=== PATIENT | female | born 1930 | race Caucasian/White ===

== ENCOUNTER 2020-01-12 12:07 | Emergency (ER) | payer MEDICARE, OTHER ==
[~2020-01-12] VITALS: Ht 162.6 cm; Wt 60.2 kg
[2020-01-12 13:44] LABS: BASOPHILS % (AUTO) 0.4 % (0-1); EOSINOPHILS % (AUTO) 0.1 % (0-6); HEMATOCRIT 36.9 % (35.0-45.0); HEMOGLOBIN 12.3 g/dl (12.0-16.0); LYMPHOCYTES # (AUTO) 0.5 X10'3 (1.1-4.8); LYMPHOCYTES % (AUTO) 7.7 % (21-51); MEAN CORPUSCULAR HEMOGLOBIN 31.6 PG (27.0-31.0); MEAN CORPUSCULAR HGB CONC 33.5 g/dL (33.0-36.5); MEAN CORPUSCULAR VOLUME 94.3 FL (78-98); MEAN PLATELET VOLUME 8.6 FL (7.4-10.4); MONOCYTES % (AUTO) 14.2 % (2-12); NEUTROPHILS # (AUTO) 5.4 X10'3 (1.8-7.7); NEUTROPHILS % (AUTO) 77.6 % (42-75); PLATELET COUNT 135 X10'3 (140-440); RED BLOOD COUNT 3.91 X10'6 (4.20-5.60); RED CELL DISTRIBUTION WIDTH 14.8 % (11.5-14.5)
[2020-01-12 13:53] LABS: ALANINE AMINOTRANSFERASE 21 U/L (12-78); ALBUMIN 3.9 G/DL (3.4-5.0); ALKALINE PHOSPHATASE 110 IU/L (46-116); ANION GAP 8 (8-16); ASPARTATE AMINO TRANSFERASE 19 U/L (10-37); BILIRUBIN,TOTAL 1.1 MG/DL (0.1-1.0); BLOOD UREA NITROGEN 22 MG/DL (7-18); BUN/CREATININE RATIO 29.3 (6.6-38.0); CALCIUM 10.9 MG/DL (8.5-10.1); CHLORIDE 99 MMOL/L (99-107); CREATININE 0.75 MG/DL (0.40-0.90); GLUCOSE 113 MG/DL (70-104); POTASSIUM 3.8 MMOL/L (3.5-5.1); SODIUM 135 MMOL/L (135-145); TOTAL CARBON DIOXIDE 28.3 MMOL/L (24-32); TOTAL PROTEIN 7.9 G/DL (6.4-8.2); eGFR 73 ML/MIN
[2020-01-12 13:54] LABS: CLARITY,URINE CLEAR (Clear); COLOR,URINE YELLOW (Yellow); GLUCOSE, URINE NEGATIVE (Neg); KETONES,URINE TRACE mg/dl (Neg); LEUKOCYTE ESTERASE ,URINE NEGATIVE (Neg); NITRITES, URINE NEGATIVE (Neg); OCCULT BLOOD,URINE SMALL (Neg); PROTEIN,URINE TRACE mg/dl (Neg)
[2020-01-12 14:02] LABS: UA COLLECTION TYPE STRAIGHT CATH
[2020-01-12 14:03] LABS: BACTERIA,URINE NONE SEEN /HPF (Neg); MUCUS STRANDS NONE SEEN /LPF (Neg); SQUAMOUS EPITHELIAL CELL,UR NONE SEEN /LPF (FEW); WBC,URINE NONE SEEN /HPF (0-4)
[2020-01-12] MEDS ORDERED: morphine 4 MG/ML inj SYRINge IV ONE (14:50)
[2020-01-12] MEDS ORDERED: ondansetron/PF 4mg/2ml inj IV ONE (14:50)
--- NOTE | 2020-01-12 14:53 | NUR ---
notified paint specialist dodson that pt bp is 199/126 .pt is in pain at this time due to discomfort on her face while x ray taking x rays of rgt leg.
--- NOTE | 2020-01-12 15:47 | NUR ---
Karen Braxton, [employer] DRAWER aware of pt's BP.
--- NOTE | 2020-01-12 15:57 | NUR ---
Pt's POA is Gia Salvador. She can be reached at [phone] (cell) or [phone] (work).
[2020-01-12] MEDS ORDERED: PHEN28OI10 RC (16:42)
[2020-01-12] MEDS ORDERED: HYDR25SU32 RC (16:42)
--- NOTE | 2020-01-12 16:46 | NUR ---
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
[2020-01-12 17:43] VITALS: BP 180/101
== END 2020-01-12 17:50 | disposition home or self-care (01) ==
LOC: ER 12:08
DX: S82.831A Other fracture of upper and lower end of right fibula, initial encounter for closed fracture (principal); I10 Essential (primary) hypertension; Z79.899 Other long term (current) drug therapy; W05.0XXA Fall from non-moving wheelchair, initial encounter; Y93.89 Activity, other specified; Y92.89 Other specified places as the place of occurrence of the external cause; Y99.8 Other external cause status
CPT/HCPCS: 29505; 36415; 73552; 73564; 73610; 73630; 80053; 81001; 84484; 85025; 96374; 96375; 99284; J2270; J2405